=== PATIENT | male | born 1980 | race Caucasian/White ===

== ENCOUNTER 2022-08-19 14:58 | Emergency (ER) | payer SELFPAY ==
[~2022-08-19] VITALS: Ht 167.6 cm; Wt 60.8 kg
[2022-08-19 15:10] VITALS: BP 130/82
--- NOTE | 2022-08-19 15:34 | NUR ---
41 YO MALE AVELINA PRESENTS TO THE ED C/O CHEST PAIN THAT WORSENS DURING BREATH AND SORE THROAT, THAT STARTED THIS MORNING. PATIENT STATES HE WAS ROUGH HOUSING/WRESTLING WITH HIS FRIEND AND HE STARTED FEELING PAIN 2 HOURS AFTER. STATES 9/10 SHARP, PAIN. STATES HE HAS SHORTNESS OF BREATH. DENIES PMH OR ALLERGIES. INTREPETER [id number]
[2022-08-19] MEDS ORDERED: IBUPROFEN 600 MG TAB PO ONE (16:10)
[2022-08-19] MEDS ORDERED: IBUP-2213 PO (17:51)
[2022-08-19] MEDS ORDERED: CYCL-711 PO (17:51)
--- NOTE | 2022-08-19 18:34 | NUR ---
Patient discharged with v/s stable. Written and verbal after care instructions given and explained. Patient alert, oriented and verbalized understanding of instructions. Ambulatory with steady gait. All questions addressed prior to discharge. ID band removed. Patient advised to follow up with PMD. Rx of FLEXERIL AND IBUPROFEN given. Patient educated on indication of medication including possible reaction and side effects. Opportunity to ask questions provided and answered.
== END 2022-08-19 18:34 | disposition home or self-care (01) ==
LOC: MED 14:58
DX: S29.019A Strain of muscle and tendon of unspecified wall of thorax, initial encounter (principal); X58.XXXA Exposure to other specified factors, initial encounter; Y93.89 Activity, other specified; Y92.89 Other specified places as the place of occurrence of the external cause; Y99.8 Other external cause status
CPT/HCPCS: 71101; 99283